=== PATIENT | male | born 1985 | race Caucasian/White ===

== ENCOUNTER 2016-08-17 17:54 | Emergency (ER) | payer OTHER ==
--- NOTE | 2016-08-17 20:04 | ED CLINICAL REPORT ---
Clinical Report - Physicians/Mid Levels [facility] [address] [place] [place] [address] 08/17/2016 17:55 Patient: SHRUTI CHILD Time Seen: 21:56 Apr 2016. Arrived- By private vehicle. Historian- patient. HISTORY OF PRESENT ILLNESS Chief Complaint: ABDOMINAL PAIN. This started 3 days. (Patient reports fevers chills arthralgias abdominal pain. Reports no sick contacts. Reports diarrhea. No change in diet. Nares antibiotics. No recent travel.). REVIEW OF SYSTEMS No difficulty with urination, pain with urination, urinary frequency, fever or difficulty breathing. All systems otherwise negative, except as recorded above. ADDITIONAL NOTES The nursing notes have been reviewed. PHYSICAL EXAM Vital Signs: 08/17/2016 18:30 BP: 135/86. HR: 75. RR: 18. O2 saturation: 100%. Temp: 99.3 F. Pain level now: 5/10. Appearance: Alert. Eyes: Eyes normal inspection. ENT: Ears normal. Nose normal. No pharyngeal erythema. Neck: Normal inspection. No thyromegaly. CVS: Normal heart rate and rhythm. Heart sounds normal. Rhythm normal. No cardiac murmur. Respiratory: No respiratory distress. Breath sounds normal. Abdomen: Soft and nontender. No abdominal tenderness. Back: Normal inspection. No CVA tenderness. Skin: Skin warm. Normal skin color. Neuro: Oriented X 3. No motor deficit. LABS, X-RAYS, AND EKG Laboratory Tests: UA-Culture if indicated: (ROSE: 08/17/2016 18:30) ( MsgRcvd 08/17/2016 19:07) Final results Test Result Flag Units (Reference) URINE COLOR DARK YELLOW URINE APPEARANCE CLEAR URINE GLUCOSE NEGATIVE (NEGATIVE) URINE BILIRUBIN ICTOTEST NEGATIVE (NEGATIVE) URINE KETONE 2+ (NEGATIVE) URINE SPECIFIC GRAVITY 1.025 (1.010-1.030) URINE PH 6.0 (5.0-8.0) URINE PROTEIN 1+ (NEGATIVE) URINE UROBILINOGEN 0.2 EU/dL (0.2-1.0) URINE NITRITE NEGATIVE (NEGATIVE) URINE BLOOD 1+ (NEGATIVE) URINE LEUK ESTERASE NEGATIVE (NEGATIVE) URINE RBC 0-1 rbc/hpf (0-1) URINE WBC RARE wbc/hpf (0-1) URINE EPITHELIAL CELLS RARE EPI/hpf (0-5) URINE BACTERIA NONE SEEN (NONE SEEN) URINE COMMENT CULT NOT INDICATED 1+ MUCUSURINE CULTURES ARE SET-UP BASED ON THE FOLLOWING CRITERIA:POSITIVE NITRITEPOSITIVE LEUKOCYTE ESTERASEGREATER THAN 10 WHITE BLOOD CELLSMODERATE (2+) OR GREATER BACTERIA CBC w Diff: (ROSE: 08/17/2016 18:45) ( [facility] 08/17/2016 19:23) Final results Test Result Flag Units (Reference) WHITE BLOOD COUNT 9.1 K/uL (4.5-11.5) RED BLOOD COUNT 5.44 M/uL (4.50-5.90) HEMOGLOBIN 16.3 gm/dL (13.5-17.5) HEMATOCRIT 47.5 % (41.0-53.0) MEAN CELL VOLUME 87 fL (80-100) MEAN CORPUSCULAR HGB 30 pg (26-34) MEAN CORPUSCULAR HGB CONC 34 g/dL (31-37) RED CELL DISTRIBUTION WIDTH 13.0 % (11.6-14.8) PLATELET COUNT 183 K/uL (150-400) NEUTROPHIL % 80.4 H % (50-75) LYMPH % 10.3 L % (25-40) MONO % 8.1 % (3-14) EOSINOPHIL % 0.9 % (0-4) BASOPHIL % 0.3 % (0-2) Lipase: (ROSE: 08/17/2016 18:45) ( [facility] 08/17/2016 19:16) Final results Test Result Flag Units (Reference) LIPASE 74 U/L (73-393) CMP: (ROSE: 08/17/2016 18:45) ( [facility] 08/17/2016 19:16) Final results Test Result Flag Units (Reference) GLUCOSE 104 mg/dL (70-110) BUN 13 mg/dL (7-18) CREATININE 1.1 mg/dL (0.6-1.3) Estimated GFR >60 mL/min Estimated GFR- >60 mL/min Note: Persistent reduction over 3 months in eGFR<60 mL/min/1.73 m2 defines CKD. Patients with eGFR values>=60 mL/min/1.73 m2 may also have CKD if evidence ofpersistent proteinuria. Additional information may be foundat www.kidney.org. SODIUM 135 L mmol/L (136-145) POTASSIUM 3.7 mmol/L (3.5-5.1) CHLORIDE 98 mmol/L (98-107) CARBON DIOXIDE 26 mmol/L (21-32) CALCIUM 9.0 mg/dL (8.5-10.1) TOTAL PROTEIN 7.9 g/dL (6.4-8.2) ALBUMIN 3.7 g/dL (3.3-5.0) BILIRUBIN, TOTAL 0.6 mg/dL (0.0-1.0) ALKALINE PHOSPHATASE 88 U/L (46-116) AST (SGOT) 22 U/L (15-37) ALT (SGPT) 29 U/L (12-78) . PROGRESS AND PROCEDURES Course of Care: Patient is very stable. No distress. Patient with soft abdomen. No signs of acute surgical abdomen. Afebrile. Given 2 L of fluid, signs of dehydration in the emergency Department. No complaints. Improvement of his symptoms. No signs of sepsis. No signs of systemic disease process. Suspected viral etiology. 08/17/2016 20:27 BP: 124/78. HR: 71. RR: 16. O2 saturation: 100%. Temp: 98.6 F. Pain level now: 0/10. Patient is stable. Symptoms better. Patient/family counseled. Disposition: Discharged. Condition: good. CLINICAL IMPRESSION Acute abdominal pain of unknown cause. Diarrhea INSTRUCTIONS Do not work today, tomorrow. Drink plenty of fluids. Prescription Medications: Zofran (orally disintegrating tablets) 4 mg: take 1 orally every 6 hours for 3 days as needed for nausea. Dispense ten (10). No refill. Reglan 10 mg tablets: take 1 orally every 8 hours for 3 days as needed for nausea or vomiting. Dispense ten (10). No refills. Substitution is permissible. Follow-up: Follow up with your doctor in three days. Understanding of the discharge instructions verbalized. (Electronically signed by Ely Nick P.A.-C 08/17/2016 22:02)
--- NOTE | 2016-08-17 20:04 | ED NURSING NOTES ---
Clinical Report - Nurses [facility] [place] [place] [address] 08/17/2016 17:55 Patient: SHRTUI CHILD TRIAGE Triage time 18:28. Acuity: LEVEL 3. Chief Complaint: FEVER and CHILLS. 18:27 08/17/16. 18:27 08/17/16. Alert. No acute distress. SEPSIS SCREEN: Sepsis Screen. Negative (no infection suspected/documented). PAMELA COMA SCORE: [place] Coma Scale: 15- eyes open spontaneously (4); best verbal response- oriented x 4 (5); best motor response- obeys commands (6). --18:33 Gurinder Conklin R.N. 18:30 08/17/16. BP: 135/86. HR: 75. RR: 18. O2 saturation: 100% on room air. Temp: 99.3 F (oral). Pain level now: 09/16. --18:33 Gurinder Conklin R.N. Weight: 79.3 kg stated. Height/Length: 70 inches Per Patient. BMI: 25.1. --18:31 Gurinder Conklin R.N. Medications None. --18:29 Gurinder Conklin R.N. Medication/allergy information source: the patient. --18:33 Gurinder Conklin R.N. Allergies Bee stings. --18:29 Gurinder Conklin R.N. History Arrived by private vehicle. Historian: patient. Accompanied by family. Primary physician (IAN). 18:27 08/17/16. ( Wednesday). 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 PAST MEDICAL HX: Immunizations not up to date. SOCIAL HX: Current some days smoker. Occasional alcohol use. History of occasional drug use: marijuana. No infectious disease exposure. ABUSE ASSESSMENT: No report of abuse. FALL RISK ASSESSMENT: Fall risk assessment completed. No fall risk identified. NUTRITIONAL RISK ASSESSMENT: The nutritional risk assessment revealed no deficiencies. FUNCTIONAL ASSESSMENT: Functional assessment: no impairments noted. LEARNING NEEDS ASSESSMENT: The learning needs assessment revealed no barriers. SKIN INTEGRITY ASSESSMENT: Skin integrity risk assessment completed. No skin integrity risk identified. --18:33 Gurinder Conklin R.N. PROBLEMS: UTI - Urinary Tract Infection. Ureterolithiasis. STD - Sexually Transmitted Disease. Immunizations. --18:29 Gurinder Conklin R.N. ADDITIONAL SURGERIES: no known surgeries. Assessment 18:28 08/17/16. --18:33 Gurinder Conklin R.N. Interventions 18:27 08/17/16. 18:28 08/17/16. ID and allergy band on patient. To treatment room. --18:33 Gurinder Conklin R.N. PHYSICAL ASSESSMENT 18:08/17/16. Ambulatory to room. GENERAL / NEURO / PSYCH: Alert. Oriented X 4. Appears in no acute distress. RESPIRATORY: Respirations not labored. CVS: Capillary refill less than 2 seconds. SKIN: Skin is warm and dry. --18:29 Gurinder Conklin R.N. NURSING PROGRESS NOTES 18:08/17/16. The plan of care for this patient has been created. Patient gowned. Head of bed elevated. Two patient identifiers checked. Call light placed in reach. Side rails up x 2. Bed placed in lowest position. Brakes of bed on. --18:29 Gurinder Conklin R.N. 18:29 08/17/16. Patient ready for evaluation- chart flagged. --18:29 Gurinder Conklin R.N. 18:40 08/17/2016 Site #1 started via IV in the right antecubital space with an 20g angiocath, with aseptic technique and good blood return; one attempt. Blood drawn: rainbow set. Labeled in the presence of the patient and sent to the lab. Saline lock flushed with 10 mL saline. --18:45 Gurinder Conklin R.N. 18:45 08/17/2016 Started bag #1 1000 mL IV Fluids IV NS (Saline); at 1000 mL/hr over 1 hour(s) via site #1. Allergies verified and confirmed 5 rights. Completed per protocol. --18:45 Gurinder Conklin R.N. 18:45 08/17/2016 Zofran (Ondansetron HCl) IVP 4 mg given over 2 minute(s) via site #1. Allergies verified and confirmed 5 rights. IV patency established. IV site checked: no pain, redness, or swelling. IV flushed thoroughly pre- and post-medication administration. IVP given by RN. --18:45 Gurinder Conklin R.N. 19:06 08/17/2016 Toradol IVP 30 mg given over 3 minute(s) via site #1. Allergies verified and confirmed 5 rights. IV patency established. IV site checked: no pain, redness, or swelling. IV flushed thoroughly pre- and post-medication administration. IVP given by RN. --19:06 Gurinder Conklin R.N. 19:06 08/17/16. BP: 134/96. HR: 81. RR: 16. O2 saturation: 99% on room air. Pain level now: 08/17. --19:07 Gurinder Conklin R.N. 19:07 08/17/16. --19:07 Gurinder Conklin R.N. 19:15 08/17/16. Care transferred and report given. --19:15 Gurinder Conklin R.N. 19:20 08/17/16. Reassessment after fluids administered and medication administered. He has had no adverse reaction. Overall patient status is improved- he states feels better. ( pain is 1/10 after meds). --19:20 Gurinder Conklin R.N. 19:45 08/17/2016 IV Fluids IV NS Discontinued: bag #1 completed. Total amount infused: 1000 mL. IV patency established. IV site checked: no pain, redness, or swelling. IV flushed thoroughly. --19:54 Sayda Ferguson R.N. 19:53 08/17/2016 Started bag #1 1000 mL IV Fluids IV NS (Saline); at 1000 mL/hr over 1 minute(s) via site #1. Allergies verified and confirmed 5 rights. IV patency established. IV site checked: no pain, redness, or swelling. IV flushed thoroughly pre- and post-medication administration. --19:53 Sayda Ferguson R.N. 20:27 08/17/2016 IV Fluids IV NS Discontinued: bag #2 completed. Total amount infused: 1000 mL. IV patency established. IV site checked: no pain, redness, or swelling. IV flushed thoroughly. --20:27 Sagar Ricardo DISPOSITION / DISCHARGE Departure time: 20:29. Condition at departure: improved. No learning barriers present. Discharge instructions provided and reviewed with the patient. Reviewed medication(s) side effects, precautions, dosing and course information. Prescription(s) given to the patient. Work note given. Follow up contact number with PCP. Patient verbalized understanding. Written instructions provided in Italian. No warning instructions, treatment instructions, referrals given to the patient, diet instructions or activity restrictions. No stop smoking instructions. The patient was discharged by the physician first assistant. He was discharged home and accompanied by spouse. He left the Emergency Department ambulatory and via private vehicle. Family member driving. FALL RISK ASSESSMENT: Fall risk assessment completed. No fall risk identified. --20:29 Sagar Ricardo 20:27 08/17/16. BP: 124/78. HR: 71. RR: 16. O2 saturation: 100%. Temp: 98.6 F. Pain level now: 010. --20:29 Sagar Ricardo Locked/Released at 08/17/2016 20:29 by Sagar Ricardo
--- NOTE | 2016-08-17 20:04 | ED ORDER SUMMARY ---
..... Patient: SHRUTI CHILD OrderSheet [facility] VisitID: [id number] [address] [place] [address] 31y, M Registration Date/Time: 08/17/2016 ORDER SHEET Weight: 79.3 kg (stated) Allergies: Bee stings GENERAL ORDERS: UA-Culture if indicated Urgent (18:33 08/17/2016 JBoardley R.N. per protocol) (Ack 18:38 KHoerner) (18:44 JBoardley R.N.) CMP Urgent (18:33 08/17/2016 JBoardley R.N. per protocol) (Ack 18:38 KHoerner) (18:44 JBoardley R.N.) CBC w Diff Urgent (18:33 08/17/2016 JBoardley R.N. per protocol) (Ack 18:38 KHoerner) (18:44 JBoardley R.N.) Lipase Urgent (18:56 08/17/2016 EKoroleva P.A.-C) (Ack 18:59 KHoerner) (19:06 JBoardley R.N.) MEDICATION ORDERS: IV FLUIDS: IV NS : initial bolus none -, then 1000 mL/hr for X1 (NOW); Routine (18:33 08/17/2016 JBoardley R.N. per protocol) (Ack 18:34 JBoardley R.N.) (18:45 JBoardley R.N.) Zofran IV 4 mg (NOW) (18:33 08/17/2016 JBoardley R.N. per protocol) (Ack 18:34 JBoardley R.N.) (18:45 JBoardley R.N.) Toradol IV 30 mg (NOW) (18:56 08/17/2016 EKoroleva P.A.-C) (Ack 19:04 JBoardley R.N.) (19:06 JBoardley R.N.) IV NS : initial bolus none -, then 1000 mL/hr for X1 (NOW); Lloyd (19:50 08/17/2016 EKoroleva P.A.-C) (Ack 19:51 EInderynes R.N.) (19:53 EInderbitzen R.N.) ORDER SHEET NOTES: [Electronically signed by Mohini Spivey R.N. (20:08/17/2016)] [Electronically signed by Ely Nick P.A.-C (22:02 08/17/2016)] [Electronically locked/signed by Mohini Spivey R.N. (:08/17/2016)]
--- NOTE | 2016-08-17 20:04 | ED ORDER SUMMARY ---
..... Patient: SHRUTI CHILD OrderSheet [facility] VisitID: [id number] [address] [place] [address] 31y, M Registration Date/Time: 08/17/2016 ORDER SHEET Weight: 79.3 kg (stated) Allergies: Bee stings GENERAL ORDERS: UA-Culture if indicated Urgent (18:33 08/17/2016 JBoardley R.N. per protocol) (Ack 18:38 KHoerner) (18:44 JBoardley R.N.) CMP Urgent (18:33 08/17/2016 JBoardley R.N. per protocol) (Ack 18:38 KHoerner) (18:44 JBoardley R.N.) CBC w Diff Urgent (18:33 08/17/2016 JBoardley R.N. per protocol) (Ack 18:38 KHoerner) (18:44 JBoardley R.N.) Lipase Urgent (18:56 08/17/2016 EKoroleva P.A.-C) (Ack 18:59 KHoerner) (19:06 JBoardley R.N.) MEDICATION ORDERS: IV FLUIDS: IV NS : initial bolus none -, then 1000 mL/hr for X1 (NOW); Routine (18:33 08/17/2016 JBoardley R.N. per protocol) (Ack 18:34 JBoardley R.N.) (18:45 JBoardley R.N.) Zofran IV 4 mg (NOW) (18:33 08/17/2016 JBoardley R.N. per protocol) (Ack 18:34 JBoardley R.N.) (18:45 JBoardley R.N.) Toradol IV 30 mg (NOW) (18:56 08/17/2016 EKoroleva P.A.-C) (Ack 19:04 JBoardley R.N.) (19:06 JBoardley R.N.) IV NS : initial bolus none -, then 1000 mL/hr for X1 (NOW); Lloyd (19:50 08/17/2016 EKoroleva P.A.-C) (Ack 19:51 EInderynes R.N.) (19:53 EInderbitzen R.N.) ORDER SHEET NOTES: [Electronically signed by Mohini Spivey R.N. (20:08/17/2016)] [Electronically signed by Ely Nick P.A.-C (22:02 08/17/2016)] [Electronically locked/signed by Mohini Spivey R.N. (:08/17/2016)]
--- NOTE | 2016-08-17 20:04 | ED NURSING NOTES ---
Clinical Report - Nurses [facility] [address] [place] [address] 08/17/2016 17:55 Patient: SHRUTI CHILD TRIAGE Triage time 18:28. Acuity: LEVEL 3. Chief Complaint: FEVER and CHILLS. 18:27 08/17/16. 18:27 08/17/16. Alert. No acute distress. SEPSIS SCREEN: Sepsis Screen. Negative (no infection suspected/documented). PAMELA COMA SCORE: [place] Coma Scale: 15- eyes open spontaneously (4); best verbal response- oriented x 4 (5); best motor response- obeys commands (6). --18:33 Gurinder Conklin R.N. 18:30 08/17/16. BP: 135/86. HR: 75. RR: 18. O2 saturation: 100% on room air. Temp: 99.3 F (oral). Pain level now: 09/16. --18:33 Gurinder Conklin R.N. Weight: 79.3 kg stated. Height/Length: 70 inches Per Patient. BMI: 25.1. --18:31 Gurinder Conklin R.N. Medications None. --18:29 Gurinder Conklin R.N. Medication/allergy information source: the patient. --18:33 Gurinder Conklin R.N. Allergies Bee stings. --18:29 Gurinder Conklin R.N. History Arrived by private vehicle. Historian: patient. Accompanied by family. Primary physician (IAN). 18:27 08/17/16. ( Wednesday). 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 PAST MEDICAL HX: Immunizations not up to date. SOCIAL HX: Current some days smoker. Occasional alcohol use. History of occasional drug use: marijuana. No infectious disease exposure. ABUSE ASSESSMENT: No report of abuse. FALL RISK ASSESSMENT: Fall risk assessment completed. No fall risk identified. NUTRITIONAL RISK ASSESSMENT: The nutritional risk assessment revealed no deficiencies. FUNCTIONAL ASSESSMENT: Functional assessment: no impairments noted. LEARNING NEEDS ASSESSMENT: The learning needs assessment revealed no barriers. SKIN INTEGRITY ASSESSMENT: Skin integrity risk assessment completed. No skin integrity risk identified. --18:33 Gurinder Conklin R.N. PROBLEMS: UTI - Urinary Tract Infection. Ureterolithiasis. STD - Sexually Transmitted Disease. Immunizations. --18:29 Gurinder Conklin R.N. ADDITIONAL SURGERIES: no known surgeries. Assessment 18:28 08/17/16. --18:33 Gurinder Conklin R.N. Interventions 18:27 08/17/16. 18:28 08/17/16. ID and allergy band on patient. To treatment room. --18:33 Gurinder Conklin R.N. PHYSICAL ASSESSMENT 18:08/17/16. Ambulatory to room. GENERAL / NEURO / PSYCH: Alert. Oriented X 4. Appears in no acute distress. RESPIRATORY: Respirations not labored. CVS: Capillary refill less than 2 seconds. SKIN: Skin is warm and dry. --18:29 Gurinder Conklin R.N. NURSING PROGRESS NOTES 18:08/17/16. The plan of care for this patient has been created. Patient gowned. Head of bed elevated. Two patient identifiers checked. Call light placed in reach. Side rails up x 2. Bed placed in lowest position. Brakes of bed on. --18:29 Gurinder Conklin R.N. 18:29 08/17/16. Patient ready for evaluation- chart flagged. --18:29 Gurinder Conklin R.N. 18:40 08/17/2016 Site #1 started via IV in the right antecubital space with an 20g angiocath, with aseptic technique and good blood return; one attempt. Blood drawn: rainbow set. Labeled in the presence of the patient and sent to the lab. Saline lock flushed with 10 mL saline. --18:45 Gurinder Conklin R.N. 18:45 08/17/2016 Started bag #1 1000 mL IV Fluids IV NS (Saline); at 1000 mL/hr over 1 hour(s) via site #1. Allergies verified and confirmed 5 rights. Completed per protocol. --18:45 Gurinder Conklin R.N. 18:45 08/17/2016 Zofran (Ondansetron HCl) IVP 4 mg given over 2 minute(s) via site #1. Allergies verified and confirmed 5 rights. IV patency established. IV site checked: no pain, redness, or swelling. IV flushed thoroughly pre- and post-medication administration. IVP given by RN. --18:45 Gurinder Conklin R.N. 19:06 08/17/2016 Toradol IVP 30 mg given over 3 minute(s) via site #1. Allergies verified and confirmed 5 rights. IV patency established. IV site checked: no pain, redness, or swelling. IV flushed thoroughly pre- and post-medication administration. IVP given by RN. --19:06 Gurinder Conklin R.N. 19:06 08/17/16. BP: 134/96. HR: 81. RR: 16. O2 saturation: 99% on room air. Pain level now: 08/17. --19:07 Gurinder Conklin R.N. 19:07 08/17/16. --19:07 Gurinder Conklin R.N. 19:15 08/17/16. Care transferred and report given. --19:15 Gurinder Conklin R.N. 19:20 08/17/16. Reassessment after fluids administered and medication administered. He has had no adverse reaction. Overall patient status is improved- he states feels better. ( pain is 1/10 after meds). --19:20 Gurinder Conklin R.N. 19:45 08/17/2016 IV Fluids IV NS Discontinued: bag #1 completed. Total amount infused: 1000 mL. IV patency established. IV site checked: no pain, redness, or swelling. IV flushed thoroughly. --19:54 Sayda Ferguson R.N. 19:53 08/17/2016 Started bag #1 1000 mL IV Fluids IV NS (Saline); at 1000 mL/hr over 1 minute(s) via site #1. Allergies verified and confirmed 5 rights. IV patency established. IV site checked: no pain, redness, or swelling. IV flushed thoroughly pre- and post-medication administration. --19:53 Sayda Ferguson R.N. 20:27 08/17/2016 IV Fluids IV NS Discontinued: bag #2 completed. Total amount infused: 1000 mL. IV patency established. IV site checked: no pain, redness, or swelling. IV flushed thoroughly. --20:27 Sagar Ricardo DISPOSITION / DISCHARGE Departure time: 20:29. Condition at departure: improved. No learning barriers present. Discharge instructions provided and reviewed with the patient. Reviewed medication(s) side effects, precautions, dosing and course information. Prescription(s) given to the patient. Work note given. Follow up contact number with PCP. Patient verbalized understanding. Written instructions provided in Ukrainian. No warning instructions, treatment instructions, referrals given to the patient, diet instructions or activity restrictions. No stop smoking instructions. The patient was discharged by the physician medical practice assistant. He was discharged home and accompanied by spouse. He left the Emergency Department ambulatory and via private vehicle. Family member driving. FALL RISK ASSESSMENT: Fall risk assessment completed. No fall risk identified. --20:29 Sagar Ricardo 20:27 08/17/16. BP: 124/78. HR: 71. RR: 16. O2 saturation: 100%. Temp: 98.6 F. Pain level now: 010. --20:29 Sagar Ricardo Locked/Released at 08/17/2016 20:29 by Sagar Ricardo
--- NOTE | 2016-08-17 22:02 | ED DISCHARGE INSTRUCTIONS ---
Patient: SHRUTI CHILD General Instructions [facility] VisitID: [id number] [address] [place] [place] [address] 31y, M Registration Date/Time: 08/17/2016 Acute abdominal pain of unknown cause. Diarrhea INSTRUCTIONS Do not work today, tomorrow. Drink plenty of fluids. Prescription Medications: Zofran (orally disintegrating tablets) 4 mg: take 1 orally every 6 hours for 3 days as needed for nausea. Dispense ten (10). No refill. Reglan 10 mg tablets: take 1 orally every 8 hours for 3 days as needed for nausea or vomiting. Dispense ten (10). No refills. Substitution is permissible. Follow-up: Follow up with your doctor in three days. Understanding of the discharge instructions verbalized. ADDITIONAL INFORMATION Abdominal Pain,Uncertain Cause [Male] Based on your visit today, the exact cause of your abdominalpain is not clear. Your exam and tests do not indicate a dangerous cause at this time. However, the signs of a serious problem may take more time to appear. Although your evaluation was reassuring today, sometimes early in the course of many conditions, exam and lab tests can appear normal. Therefore, it is important for you to watch for any new symptoms or worsening of your condition. Causes It may not be obvious what caused your symptoms. Pay attention to things that do seem to make your symptoms worse or better and discuss this with your doctor when you follow up. Diagnosis The evaluation of abdominal pain in the emergency department may onlyrequire an exam by the doctor or it may include blood, urine or imaging studies, depending on many factors. Sometimes exams and tests can identify a cause but in many cases, a clear cause is not found. Further testing at follow up visits may help to suggest a clear diagnosis. Home Care Rest as much as possible until your next exam. Try to avoid any medications (unless otherwise directed by your doctor), foods, activities, or other factors that you may have contributed to your symptoms. Try to eat foods that you know that you have tolerated well in the past. Certain diets may be recommended for some conditions that cause abdominal pain. However, since the cause of your symptoms may not be clear, discuss your diet more with your primary care provider or specialist for further recommendations. Eating several small meals per day as opposed to 2 or 3 larger meals may help. Monitor closely for anything that may make your symptoms worse or better. Pay close attention to symptoms below that may indicate worsening of your condition. Follow Up and Precautions See your doctoras instructed or sooneror if your symptoms are not improving.In some cases, you may need more testing. When to Seek Medical Attention Contact your doctor or see medical attention ifany of the following occur: Pain is becoming worse You are unable to take your medications due to excessive vomiting Swelling of the abdomen Fever of 100.4F (38C) or higher, or as directed by your health care provider Blood in vomit or bowel movements (dark red or black color) Jaundice (yellow color of eyes and skin) New onset of weakness, dizziness or fainting New onset of chest, arm, back, neck or jaw pain Epigastric Pain (Uncertain Cause) Epigastric pain can be a sign of disease in the upper abdomen. Common causes include: Acid reflux (stomach acid flowing up into the esophagus) Gastritis (irritation of the stomach lining) Peptic Ulcer Disease Inflammation of the pancreas Gallstone Infection in the gallbladder Pain may be dull or burning. It may spread upward to the chest or to the back. There may be other symptoms such as belching, bloating, cramps or hunger pains. There may be weight loss or poor appetite, nausea or vomiting. Since the diagnosis of your pain is not certain yet, further tests will be needed. Sometimes the doctor will treat you for the most likely condition to see if there is improvement before doing further tests. Home Care: Unless told otherwise, you may try antacids (Mylanta or Maalox) help neutralize stomach acid. This may relieve your pain. Take 1-2 tablespoons or tablets one hour after meals and at bedtime. The liquid form coats the stomach better than the chewable tablets and is preferred. If Tagamet (cimetidine), Zantac (ranitidine), or Carafate (sucralfate) has also been prescribed, allow one hour between taking this medicine and taking the antacids. Avoid foods that irritate the stomach. Follow a light diet until you are feeling better. Avoid alcohol, caffeine, and tobacco. Talk to your doctor before taking any [id number] medicine that contains aspirin or an anti-inflammatory drug such as ibuprofen, Advil, Motrin, Naprosyn, or Aleve. Follow Up with your doctor or as advised if you do not improve over the next 48 hours. Get Prompt Medical Attention if any of the following occur: Stomach pain worsens or moves to the right lower part of the abdomen Chest pain appears, or if it worsens or spreads to the chest, back, neck, shoulder, or arm Frequent vomiting (cant keep down liquids) Blood in the stool or vomit (red or black color) Feeling weak or dizzy, fainting, or having trouble breathing Fever of 100.4F (38C) or higher, or as directed by your healthcare provider Abdominal swelling Symptoms With Uncertain Cause [Adult] Based on the exam and any tests that were performed today, the exact cause of your symptoms is not certain. While your condition does not seem serious, the signs of a serious problem may take more time to appear. Therefore, it is important for you to watch for any new symptoms or worsening of your condition.Follow up with your doctor or this facility, as directed.A repeat physical exam or additional testing at a later time may uncover a cause for your symptoms that is not evident today. Home Care: Resume your usual activities and diet when this feels comfortable to do so. Follow Up with your doctor, or as advised by our staff.Contact your doctor sooner if your symptoms do not begin to improve in the next few days. [NOTE: If you had an x-ray, CT scan, ultrasound, or ECG (electrocardiogram), it will be reviewed by a specialist. You will be notified of any new findings that may affect your care.] Get Prompt Medical Attention if any of the following occur: Current symptoms get worse New symptoms appear Diarrhea, Uncertain Cause (Adult, Report Pending) Diarrhea has several possible causes. Commonstomach fluis caused by a virus. Food poisoning, bacteria or parasites are other causes for diarrhea. Only diarrhea caused by bacteria or parasites requires treatment with an antibiotic. Diarrhea from a virus or food poisoning improves with simple home treatment. A stool sample is needed to make the diagnosis of an infection with bacteria or parasites. Up to three stool specimens may be required to diagnose This may take up to two days to get the result. It may be necessary to wait until the stool test is complete to make the diagnosis and select the best antibiotic to prescribe. Home Care: If symptoms are severe, rest at home for the next 24 hours or until you are feeling better. You may use acetaminophen (Tylenol) or ibuprofen (Motrin, Advil) to control fever, unless another medicine was prescribed. [NOTE: If you have chronic liver or kidney disease or ever had a stomach ulcer or GI bleeding, talk with your doctor before using these medicines.] (Aspirin should never be used in anyone under 18 years of age who is ill with a fever. It may cause severe liver damage.) Avoid tobacco, caffeine and alcohol, which may worsen your symptoms. If anti-diarrhea medicine was prescribed, take this only as directed. Sometimes anti-diarrhea medicine can make your condition worse if the cause is an infectious diarrhea. Therefore, anti-diarrhea medicine should not be taken for this condition unless advised by your doctor. During The First 12-24 Hours follow the diet below: BEVERAGES: Sport drinks like Gatorade, soft drinks without caffeine; estrella kimberley, mineral water (plain or flavored), decaffeinated tea and coffee. SOUPS: Clear broth, consomm and bouillon DESSERTS: Plain gelatin (Jell-O), popsicles and fruit juice bars. During The Next 24 Hours you may add the following to the above: Hot cereal, plain toast, bread, rolls, crackers Plain noodles, rice, mashed potatoes, chicken noodle or rice soup Unsweetened canned fruit (avoid pineapple), bananas Limit fat intake to less than 15 grams per day by avoiding margarine, butter, oils, mayonnaise, sauces, gravies, fried foods, peanut butter, meat, poultry and fish. Limit fiber; avoid raw or cooked vegetables, fresh fruits (except bananas) and bran cereals. Limit caffeine and chocolate. No spices or seasonings except salt. During The Next 24 Hours Gradually resume a normal diet, as you feel better and your symptoms lessen. Follow Up with your doctor or as advised if you are not improving over the next two days. If you were asked to bring a specimen from home, bring the sample on the day of collection. You may call in 2 days (or as directed) for the results. Get Prompt Medical Attention if any of the following occur: Increasing abdominal pain or constant lower right abdominal pain Continued vomiting (unable to keep liquids down) Frequent diarrhea (more than 5 times a day) Blood in vomit or stool (black or red color) Reduced oral intake Dark urine, reduced urine output Weakness, dizziness, fainting Drowsiness, confusion, stiff neck or seizure Fever of 100.4F (38C) oral or higher, not better with fever medication New rash [place] Diet A bland diet is used for patients with an upset stomach. It consists of foods that are mild and easy to digest. It is better to eat small frequent meals rather than three large meals a day. BEVERAGES OK: Fruit juices, non-caffeinated teas and coffee, non-carbonated baxter AVOID: Carbonated beverage, caffeinated tea and coffee, all alcoholic beverages BREAD OK: Refined white, wheat or rye bread, phil or soda crackers, [place] toast, plain rolls, bagels AVOID: Whole-grain bread CEREAL OK: Refined cereals: cooked or ready to eat AVOID: Whole grain cereals and granola, or those containing bran, seeds or nuts DESSERTS OK: Peanut butter and all others except those to "avoid" AVOID: Chocolate, cocoa, coconut, popcorn, nuts, seeds, jam, marmalade FRUITS OK: Canned, cooked, frozen or fresh fruits without seeds or tough skin AVOID: Olives, skin and seeds of fruit MEATS OK: All fresh or preserved meat, fish and fowl AVOID: Any that are prepared with those spices to "avoid" CHEESE & EGGS OK: Eggs, cottage cheese, cream cheese, other cheeses AVOID: All cheeses made with those spices to "avoid" POTATOES & PASTA OK: Potato, rice, macaroni, noodles, spaghetti AVOID: None SOUPS OK: All soups without heavy seasoning AVOID: Soups made with those spices to "avoid" VEGETABLES OK: Canned, cooked, fresh or frozen mildly flavored vegetables without seeds, skins or coarse fiber AVOID: Vegetables prepared with those spices to "avoid"; skin and seeds of vegetables and those with coarse fiber SPICES OK: Salt, lemon and yuhaaviatam juice, vinegar, all extracts, yanna, cinnamon, thyme, mace, allspice, paprika AVOID: Campus powder, cloves, pepper, seed spices, garlic, gravy pickles, highly seasoned salad dressings Clear Liquid Diet Clear liquids are any liquid that you can see through as well as those that are very easy to digest. This is used while the body is recovering from irritation or infection of the stomach or intestinal tract. It may also be used before special procedures or surgery. This diet is to be used no more than three days. You may include the following items. Adults Adults should drink a total of 23 quarts of liquid per day. It may be easier to drink small frequent servings rather than a few large ones. Liquids can include: Fruit juices.Strained orange juice or lemonade (no pulp), apple, grape and cranberry juice, clear fruit drinks, sports drinks Beverages.Sport drinks, sodas, mineral water (plain or flavored), tea, black coffee, liquid gelatin (add twice the recommended amount of water) Soups.Clear broth, consomm, bouillon Desserts.Plain gelatin, popsicles, fruit juice bars Children Over 2 years old The following liquids are acceptable for children over age 2: Fruit juices.Strained orange juice or lemonade (no pulp), apple, grape and cranberry juice, clear fruit drinks Beverages. Sports drinks, sodas, mineral water (plain or flavored), tea, liquid gelatin (add twice the recommended amount of water) Soups. Clear broth, consomm, bouillon Desserts. Plain gelatin, popsicles, fruit juice bars Children under 2 years old Oral rehydration fluids such are available at drug stores and most grocery stores without a prescription. Ondansetron Hydrochloride Oral tablet What is this medicine? ONDANSETRON (on GODFREY se jarrell) is used to treat nausea and vomiting caused by chemotherapy. It is also used to prevent or treat nausea and vomiting after surgery. How should I use this medicine? Take this medicine by mouth with a glass of water. Follow the directions on your prescription label. Take your doses at regular intervals. Do not take your medicine more often than directed. Talk to your de icer regarding the use of this medicine in children. Special care may be needed. What side effects may I notice from receiving this medicine? Side effects that you should report to your doctor or health career center director as soon as possible: allergic reactions like skin rash, itching or hives, swelling of the face, lips or tongue breathing problems dizziness fast or irregular heartbeat feeling faint or lightheaded, falls fever and chills swelling of the hands or feet tightness in the chest Side effects that usually do not require medical attention (report to your doctor or health career center director if they continue or are bothersome): constipation or diarrhea headache What may interact with this medicine? Do not take this medicine with any of the following medications: -apomorphine -cisapride -dofetilide -dronedarone -pimozide -thioridazine -ziprasidone This medicine may also interact with the following medications: -carbamazepine -phenytoin -rifampicin -tramadol -other medicines that prolong the QT interval (cause an abnormal heart rhythm) What if I miss a dose? If you miss a dose, take it as soon as you can. If it is almost time for your next dose, take only that dose. Do not take double or extra doses. Where should I keep my medicine? Keep out of the reach of children. Store between 2 and 30 degrees C (36 and 86 degrees F). Throw away any unused medicine after the expiration date. What should I tell my health care provider before I take this medicine? They need to know if you have any of these conditions: heart disease history of irregular heartbeat liver disease low levels of magnesium or potassium in the blood an unusual or allergic reaction to ondansetron, granisetron, other medicines, foods, dyes, or preservatives or trying to get breast-feeding What should I watch for while using this medicine? Check with your doctor or health career center director right away if you have any sign of an allergic reaction. You have been given the following additional information: Abdominal Pain, Unknown Cause, (Male) Epigastric Pain (Uncertain Cause) Symptoms With Uncertain Cause Diarrhea, Unk Cause (Adult) Report Pendg Diet, [place] (Adult) Diet, Clear Liquid Ondansetron Hydrochloride Oral tablet Do not work today, tomorrow. (Electronically signed by Ely Nick P.A.-C 08/17/2016 22:02)
--- NOTE | 2016-08-17 22:03 | ED MED RECONCILIATION SUMMARY ---
Patient: SHRUTI CHILD Medication Reconciliation Report [facility] VisitID: [id number] [address] [place] [address] 31y, M Registration Date/Time: 08/17/2016 Weight: 79.3 kg Height/Length: 70 in. BMI: 25.1 ALLERGIES: Bee stings The patient's Home Medications are listed below: NONE. The source(s) of the original Home Medication information: patient The following Medications were given to the patient in the Emergency Department: IV NS IV Fluids bolus 0, then 1000 mL/hr, administered: 08/17/2016 6:45:00 PM Zofran [IVP] IVP 4 mg, administered: 08/17/2016 6:45:00 PM Toradol [IVP] IVP 30 mg, administered: 08/17/2016 7:06:00 PM IV NS IV Fluids bolus 0, then 1000 mL/hr, administered: 08/17/2016 7:53:00 PM The following Medications were prescribed to the patient: Zofran (orally disintegrating tablets) 4 mg: take 1 orally every 6 hours for 3 days as needed for nausea. Dispense ten (10). No refill. -- Ely Nick, P.AJermaine-Audi Reglan 10 mg tablets: take 1 orally every 8 hours for 3 days as needed for nausea or vomiting. Dispense ten (10). No refills. Substitution is permissible. -- Ely Nick P.AKae
--- NOTE | 2016-08-17 22:03 | ED MAR SUMMARY ---
..... Medication Administration Record [facility] [address] [place] [address] Patient: SHRUTI CHILD Visit ID: [id number] 31y, M Weight: 79.3 kg Height/Length: 70 in BMI: 25.1 ALLERGIES: Bee stings Start 18:45 08/17/2016 Gurinder Conklin R.N., Stop 19:45 08/17/2016 Sayda Ferguson R.N. Medication Administered: IV NS (SALINE), Dose: IV Fluids over 1 hour(s), Rate: 1000 mL/hr, Dispensed: 1000 mL bag, Site: #1 right AC. Medication Ordered: IV NS : initial bolus none -, then 1000 mL/hr for X1 (NOW); Routine. Given 18:45 08/17/2016 Gurinder Conklin R.N. Medication Administered: ZOFRAN [IVP] (ONDANSETRON HCL), Dose: 4 mg IVP over 2 minute(s), Site: #1 right AC. Medication Ordered: Zofran IV 4 mg (NOW). Given 19:06 08/17/2016 Gurinder Conklin R.N. Medication Administered: TORADOL [IVP], Dose: 30 mg IVP over 3 minute(s), Site: #1 right AC. Medication Ordered: Toradol IV 30 mg (NOW). Start 19:53 08/17/2016 Sayda Ferguson R.N., Stop 20:27 08/17/2016 Sagar Ricardo Medication Administered: IV NS (SALINE), Dose: IV Fluids over 1 minute(s), Rate: 1000 mL/hr, Dispensed: 1000 mL bag, Site: #1 right AC. Medication Ordered: IV NS : initial bolus none -, then 1000 mL/hr for X1 (NOW); Lloyd.
--- NOTE | 2016-08-17 22:03 | ED MED RECONCILIATION SUMMARY ---
Patient: SHRUTI CHILD Medication Reconciliation Report [facility] VisitID: [id number] [address] [place] [address] 31y, M Registration Date/Time: 08/17/2016 Weight: 79.3 kg Height/Length: 70 in. BMI: 25.1 ALLERGIES: Bee stings The patient's Home Medications are listed below: NONE. The source(s) of the original Home Medication information: patient The following Medications were given to the patient in the Emergency Department: IV NS IV Fluids bolus 0, then 1000 mL/hr, administered: 08/17/2016 6:45:00 PM Zofran [IVP] IVP 4 mg, administered: 08/17/2016 6:45:00 PM Toradol [IVP] IVP 30 mg, administered: 08/17/2016 7:06:00 PM IV NS IV Fluids bolus 0, then 1000 mL/hr, administered: 08/17/2016 7:53:00 PM The following Medications were prescribed to the patient: Zofran (orally disintegrating tablets) 4 mg: take 1 orally every 6 hours for 3 days as needed for nausea. Dispense ten (10). No refill. -- Ely Nick, P.AJermaine-Audi Reglan 10 mg tablets: take 1 orally every 8 hours for 3 days as needed for nausea or vomiting. Dispense ten (10). No refills. Substitution is permissible. -- Ely Nick P.AKae
--- NOTE | 2016-08-17 22:03 | ED MAR SUMMARY ---
..... Medication Administration Record [facility] [address] [place] [address] Patient: SHRUTI CHILD Visit ID: [id number] 31y, M Weight: 79.3 kg Height/Length: 70 in BMI: 25.1 ALLERGIES: Bee stings Start 18:45 08/17/2016 Gurinder Conklin R.N., Stop 19:45 08/17/2016 Sayda Ferguson R.N. Medication Administered: IV NS (SALINE), Dose: IV Fluids over 1 hour(s), Rate: 1000 mL/hr, Dispensed: 1000 mL bag, Site: #1 right AC. Medication Ordered: IV NS : initial bolus none -, then 1000 mL/hr for X1 (NOW); Routine. Given 18:45 08/17/2016 Gurinder Conklin R.N. Medication Administered: ZOFRAN [IVP] (ONDANSETRON HCL), Dose: 4 mg IVP over 2 minute(s), Site: #1 right AC. Medication Ordered: Zofran IV 4 mg (NOW). Given 19:06 08/17/2016 Gurinder Conklin R.N. Medication Administered: TORADOL [IVP], Dose: 30 mg IVP over 3 minute(s), Site: #1 right AC. Medication Ordered: Toradol IV 30 mg (NOW). Start 19:53 08/17/2016 Sayda Ferguson R.N., Stop 20:27 08/17/2016 Sagar Ricardo Medication Administered: IV NS (SALINE), Dose: IV Fluids over 1 minute(s), Rate: 1000 mL/hr, Dispensed: 1000 mL bag, Site: #1 right AC. Medication Ordered: IV NS : initial bolus none -, then 1000 mL/hr for X1 (NOW); Lloyd.
== END 2016-08-17 20:25 | disposition home or self-care (01) ==
LOC: ED SRH 17:54
DX: R19.7 Diarrhea, unspecified (principal); R10.9 Unspecified abdominal pain; F17.210 Nicotine dependence, cigarettes, uncomplicated; Z91.030 Bee allergy status
CPT/HCPCS: 90004; 90100; 92235; 95059